=== PATIENT | male | born 2005 ===

== ENCOUNTER 2025-02-10 19:28 | Emergency (ER) | payer SELFPAY ==
[2025-02-10 19:33] VITALS: BP 126/65; PULSE 90; RESP 18; TEMP 37; O2SAT 95
--- NOTE | 2025-02-10 19:50 | W.ED.GENAD ---
Discharge Plan Disposition Patient Disposition: Home Condition: Good Discharge Details Clinical Impression: Wound dehiscence, Dehiscence of external surgical wound ED Provider: Genaro Blackwell Recommendations for Follow Up Recommended tests to be ordered by follow up provider: You need to follow-up with the orthopedic surgeon Discharge Instructions Instructions: Wound Dehiscence (DC) Stand Alone Forms: Portal Information Discharge Data Discharge Physician: Genaro Blackwell [facility] General Date/Time Provider Initiated Documentation: 02/10/25 19:43. HPI Narrative: Patient presents emergency department concerned that he might have an infection of the wound and that it opened up in the bottom part after he had ankle surgery in January for left ankle fracture. Went to urgent care 2 days ago and he was prescribed antibiotics which he has been taking it regularly noted the inferior portion of the wound was open. Denies any fever denies any chills denies any redness to the site denies any ankle pain or swelling General Stated Complaint: Orthopedic NARGIS: 3 Review of Systems Narrative: Review of Systems: Constitutional: No fevers, chills, sweats Eye: No recent visual problems ENT: No ear pain, nasal congestion, sore throat Respiratory: No shortness of breath, cough Cardiovascular: No Chest pain, palpitations, syncope Gastrointestinal: No nausea, vomiting, diarrhea Genitourinary: No hematuria Salvador/Lymph: Negative for bruising tendency, swollen lymph glands Endocrine: Negative for excessive thirst, excessive hunger Musculoskeletal: No back pain, neck pain, joint pain, muscle pain, decreased range of motion Integumentary: No rash, pruritus, abrasions Neurologic: Alert & oriented X 4 Psychiatric: No anxiety, depression Exam Narrative Exam Narrative: Exam; vitals signs as reported above normal Constitutional; In no acute distress, afebrile General: cooperative, healthy appearing, comfortable and no acute distress HEENT: Head: normal to inspection, no palpable skull fracture and normocephalic atraumatic Eyes: : appearance normal, both eyes and all related structures EOM intact bilaterally Pupils: PERRL : conjunctiva normal Direct ophthalmoscopy: normal light reflex, normal conjunctiva, normal visual acuity Ears: Normal TM, normal external canal Nose: normal no rhinorreha Neck no JVD, supple non tender Neck: normal visual inspection, full ROM and no lymphadenopathy Chest: normal inspection of the chest Respiratory : normal respiratory effort and able to speak in complete sentences no wheezing no rales Cardio Rate: regular rate, rhythm: regular rhythm normal heart sounds S1 and S2 no murmurs, gallops, or rubs GI : normal to inspection, normal bowel sounds, soft, non tender, non distended, no organomegaly Back/Spine/ no CVA tenderness Thoracic/Lumbar Spine: no tenderness or deformities Skin no rashes or lesions Neuro: patient alert oriented x 4 and no meningeal signs, Cranial Nerves: CN's II-XI intact bilaterally, Cognition: normal cognition, Speech: speech normal, Gait: normal gait, Depp tendon reflexes normal 2+ muscle strength 5/5 bilaterally Extremities, no edema, full range of motion, normal strength left ankle without wound that has small area of dehiscence in the inferior aspect but there is no drainage there is granulation tissue there is no surrounding erythema and there is no swelling he has full range of motion of this ankle and there is no tenderness. Course Vital Signs Vital signs: Vital Signs Temperature 37.0 C 02/10/25 19:33 Pulse 90 02/10/25 19:33 Respiratory Rate 18 02/10/25 19:33 Blood Pressure 126/65 02/10/25 19:33 Pulse Oximetry 95 02/10/25 19:33 Temperature 37.0 C 02/10/25 19:33 Temperature Source Oral 02/10/25 19:33 Pulse 90 02/10/25 19:33 Respiratory Rate 18 02/10/25 19:33 Blood Pressure 126/65 02/10/25 19:33 Blood Pressure Position Supine 02/10/25 19:33 Pulse Oximetry 95 02/10/25 19:33 Oxygen Delivery Method Room Air 02/10/25 19:33 Oxygen Flow Rate 0 02/10/25 19:33 Pain Level 4 02/10/25 19:33 Medical Decision Making MDM: Summary: Patient had ankle surgery back in January and went to urgent care about 5 days ago and prescribed antibiotics for a wound infection he comes in for follow-up for he noted small area of dehiscence in the inferior aspect of the wound. There is no erythema there is no drainage there is no swelling and there is no acute signs of infection. I told patient to continue the antibiotics and let the inferior aspect of the wound which is dehisced to heal by second intention there is no drainage from the wound and the dehiscence is only superficial to the skin layer. He needs to follow-up with his orthopedic surgeon Data Review Analysis All the data on this patient was reviewed by me including laboratory and imaging studies as well as bedside studies performed by me Independent review of Studies Imaging Lab: Risk Stratification: Patient with small dehiscence in the inferior aspect of the wound but there is no signs of infection and he is already in antibiotics he will continue to wash the wound and let it heal from the second attention understands the need for follow-up Differential Diagnosis: 1. Wound dehiscence 2. Wound infection 3. Osteomyelitis 4. 5. Consultants: Shared disposition: Patient understands disposition needs to follow according Impression: PFSH All Active Problems (Updated 02/10/25 @ 20:00 by Genaro Blackwell MD) Dehiscence of external surgical wound (Acute) Wound dehiscence (Acute) Social History Smoking/Tobacco Use Status: Current every day Tobacco Type: cigarettes Smoking risk assessment performed?: Yes Alcohol Intake: current Alcohol Intake frequency: a few times a week Alcohol type: beer and hard liquor Substance use type: marijuana PAWSS Have you Been Recently Intoxicated or Drunk Within the Last 30 days?: Yes Have you Ever Experienced Previous Episodes of Alcohol Withdrawal?: No Have you ever Experienced Withdrawal Seizures?: No Have you ever Experienced Delirium Tremens(DT)s?: No Have you ever undergone Alcohol Rehabilitation Treatment (i.e, inpt ot outpatient treatment programs)?: No Have you ever Experienced Blackouts?: No Have you ever Combined Alcohol with other Downers within the last 90 days?: No Have you ever Combined Alcohol with any other Substance of Abuse during the last 90 days?: No Positive Blood Alcohol level on Presentation? [PCS.BAL]: No Evidence of Increased Autonomic Activity (i.e. HR>120, tremor, sweating, agitation, nausea)?: No Result: 1
[2025-02-10 20:13] VITALS: RESP 16
== END 2025-02-10 20:35 | disposition home or self-care (01) ==
LOC: ER 20:16
PROVIDERS: Emergency Provider Emergency Medicine Emergency Medical Services
DX: T81.31XA Disruption of external operation (surgical) wound, not elsewhere classified, initial encounter (principal)
CPT/HCPCS: 99281; 99282